=== PATIENT | male | born 1955 | race Caucasian/White ===

== ENCOUNTER 2021-12-05 01:31 | Emergency (ER) | payer OTHER ==
[2021-12-05 01:44] VITALS: BMI 32.8
[2021-12-05] MEDS ORDERED: MAGNESIUM SULFATE IN WATER 2 GM/50 ML IVPB IVPB ONE (01:47)
[2021-12-05] MEDS ORDERED: ONDANSETRON 4 MG/2 ML VIAL ONE (01:51)
[2021-12-05] MEDS ORDERED: RAPID SEQUENCE INTUBATION KIT NR ONE (01:58)
[2021-12-05] MEDS ORDERED: MIDAZOLAM HCL 2 MG/2 ML SINGLE DOSE VIAL ONE (02:01)
[2021-12-05] MEDS ORDERED: fentaNYL CITRATE 250 MCG/5 ML VIAL ONE (02:11)
[2021-12-05] MEDS ORDERED: MIDAZOLAM HCL 5 MG/1 ML Single Dose Vial IVPUSH ONE (02:14)
[2021-12-05] MEDS ORDERED: ROCURONIUM BROMIDE 50 MG/5 ML VIAL IV ONE (02:14)
[2021-12-05] MEDS ORDERED: ONDANSETRON 4 MG/2 ML VIAL IVPUSH ONE (02:14)
[2021-12-05] MEDS ORDERED: HEPARIN NA (PORCINE) 5,000 UNITS/ML 1ML VIAL IVPUSH PRN ×4 (02:37→03:04)
[2021-12-05] MEDS ORDERED: HEPARIN INFUSION - 25,000 UNITS/500 ML INFUS.BAG IVPB ONE (02:42)
[2021-12-05] MEDS ORDERED: TICAGRELOR 60 MG TABLET PO ONE (02:45)
[2021-12-05] MEDS ORDERED: HEPARIN - 25,000 UNIT in SODIUM CHLORIDE 495 ML IV SCH (02:45)
[2021-12-05] MEDS ORDERED: FENTANYL IVPB 500 MCG/100 ML BAG IVPB SCH (02:45)
[2021-12-05] MEDS ORDERED: TICAGRELOR 90 MG TABLET PO ONE (02:46)
[2021-12-05 02:47] LABS: BASO % 0.6 % (0-2.0); EOS % 4.4 % (0-4.5); HEMATOCRIT 44.7 % (35.4-49); HEMOGLOBIN 15.2 GM/dL (11.7-16.9); LYMPH % 38.1 % (8-40); MCH 31.7 pg (25.7-33.7); MEAN CELL VOLUME 93.3 fl (80-96); MONO % 13.2 % (3.8-10.2); NEUT % 43.7 % (42.8-82.8); PLATELET COUNT 239 10^3/uL (134-434); RBC 4.79 M/mm3 (4.00-5.60); RDW 14.3 % (11.9-15.9); WHITE BLOOD COUNT 8.8 K/mm3 (4.0-10.0)
[2021-12-05 02:56] LABS: INR 0.98 (0.83-1.09); PROTHROMBIN TIME (PATIENT) 11.3 SEC (9.7-13.0)
[2021-12-05 02:58] LABS: CHLORIDE 104 mmol/L (98-107); SODIUM 141 mmol/L (136-145)
[2021-12-05 02:59] LABS: ACTIVATED PTT 28.5 SECONDS (25.2-36.5)
[2021-12-05 03:00] LABS: ALBUMIN 3.9 g/dl (3.4-5.0); ANION GAP 9 MMOL/L (8-16); BLOOD UREA NITROGEN 12.3 mg/dL (7-18); CALCIUM 8.8 mg/dL (8.5-10.1); CO2 29 mmol/L (21-32); GLUCOSE,RANDOM 145 mg/dL (74-106)
[2021-12-05 03:03] LABS: SGOT/AST 27 U/L (15-37); SGPT/ALT 35 U/L (13-61)
[2021-12-05 03:05] LABS: BILIRUBIN,TOTAL 0.3 mg/dL (0.2-1); TOT PROT 7.1 g/dl (6.4-8.2)
[2021-12-05 03:06] LABS: ALK PHOS 66 U/L (45-117)
[2021-12-05] MEDS ORDERED: HEPARIN INFUSION - 25,000 UNITS/500 ML INFUS.BAG IVPB SCH (03:15)
[2021-12-05 04:06] VITALS: BP 136/93; PULSE 82
[2021-12-05 04:07] VITALS: TEMP 98
== END 2021-12-05 04:38 | disposition short-term general hospital (02) ==
LOC: JER 01:31
PROC: 3E033NZ Introduction of Analgesics, Hypnotics, Sedatives into Peripheral Vein, Percutaneous Approach (ICD-10-PCS; principal; 2021-12-05)
PROC: 3E033GC Introduction of Other Therapeutic Substance into Peripheral Vein, Percutaneous Approach (ICD-10-PCS; 2021-12-05)
PROC: 3E033GC Introduction of Other Therapeutic Substance into Peripheral Vein, Percutaneous Approach (ICD-10-PCS; 2021-12-05)
PROC: 3E033GC Introduction of Other Therapeutic Substance into Peripheral Vein, Percutaneous Approach (ICD-10-PCS; 2021-12-05)
PROC: 3E033GC Introduction of Other Therapeutic Substance into Peripheral Vein, Percutaneous Approach (ICD-10-PCS; 2021-12-05)
PROC: 3E033GC Introduction of Other Therapeutic Substance into Peripheral Vein, Percutaneous Approach (ICD-10-PCS; 2021-12-05)
PROC: 3E033GC Introduction of Other Therapeutic Substance into Peripheral Vein, Percutaneous Approach (ICD-10-PCS; 2021-12-05)
DX: I21.3 ST elevation (STEMI) myocardial infarction of unspecified site (principal)
CPT/HCPCS: 0241U-QW; 36415; 71045-TC-FY; 80053; 82962; 84484; 85025; 85610; 85730; 93005; 93010; 99285-25; J1644

== ENCOUNTER 2022-11-10 08:53 | Emergency (ER) | payer OTHER ==
[2022-11-10 09:20] VITALS: BP 128/80; PULSE 73; RESP 18; TEMP 99.1; BMI 31.6
== END 2022-11-10 11:12 | disposition home or self-care (01) ==
LOC: FER 08:53
DX: S83.412A Sprain of medial collateral ligament of left knee, initial encounter (principal); M25.562 Pain in left knee; M79.671 Pain in right foot; M79.672 Pain in left foot; M25.462 Effusion, left knee; W19.XXXA Unspecified fall, initial encounter; Y93.9 Activity, unspecified; Y92.009 Unspecified place in unspecified non-institutional (private) residence as the place of occurrence of the external cause
CPT/HCPCS: 73562-TC-LT-FY; 73630-TC-LT; 73630-TC-RT-FY; 99283-25

== ENCOUNTER 2023-07-01 12:17 | Emergency (ER) | payer OTHER ==
[2023-07-01 12:37] VITALS: RESP 18; BMI 32.4
[2023-07-01] MEDS ORDERED: ASPIRIN 81 MG CHEWABLE TABLETS PO ONE ×2 (12:37→14:07)
[2023-07-01] MEDS ORDERED: ASPIRIN 81 MG CHEWABLE TABLETS ONE (12:38)
[2023-07-01 13:19] LABS: HEMATOCRIT 40.2 % (35.4-49); HEMOGLOBIN 13.7 G/dL (11.7-16.9); MCH 32.1 pg (25.7-33.7); MEAN CELL VOLUME 94.7 fl (80-96); MEAN PLT VOLUME 8.9 fl (7.5-11.1); RBC 4.25 10^6/uL (4.00-5.60); RDW 14.5 % (11.9-15.9); WHITE BLOOD COUNT 5.3 10^3/uL (4.0-10.8)
[2023-07-01 13:31] LABS: ALBUMIN 4.2 g/dl (3.4-5.0); BILIRUBIN,TOTAL 0.7 mg/dl (0.2-1); CALCIUM 9.3 mg/dl (8.5-10.1); POTASSIUM 4.4 mmol/L (3.5-5.1); TOT PROT 6.3 g/dl (6.4-8.2)
[2023-07-01 17:28] VITALS: BP 137/76; PULSE 59; TEMP 98
== END 2023-07-01 17:42 | disposition home or self-care (01) ==
LOC: FER 12:17
DX: R07.9 Chest pain, unspecified (principal)
CPT/HCPCS: 36415; 71046-TC-FY; 80053; 84484; 85027; 93005; 99285-25